=== PATIENT | female | born 1935 | race Caucasian/White ===

== ENCOUNTER 2017-03-13 10:21 | Observation (INO) ==
[2017-03-13] MEDS ORDERED: 0.9 % SODIUM CHLORIDE 1,000 ML IV ONE (10:38)
--- NOTE | 2017-03-13 10:40 | Emergency Department Note ---
Abdominal Pain HPI - General Chief Complaint: Abdominal Pain Stated Complaint: Abdominal Pain Time Seen by Provider: 03/13/17 10:36 Source: patient Mode of arrival: ambulatory Limitations: no limitations - History of Present Illness HPI Narrative: This patient developed sudden onset of right lower quadrant pain this morning. No nausea or vomiting. She does still have ovaries and appendix. MD Complaint: abdominal pain Onset (ago): hour(s) Consistency: constant Location: RLQ Severity: moderate Quality: stabbing Radiation: none Migration to: no migration Improves with: nothing Worsens with: nothing - Related Data Previous Rx's Medication Instructions Recorded alprazolam 0.5 mg tablet 0.25 mg PO PRN #30 tab 01/01/17 Allergies Allergy/AdvReac Type Severity Reaction Status Date / Time Beer AdvReac Unknown Sneezing, Uncoded 01/01/17 09:37 cough Cats AdvReac Unknown Eye Uncoded 01/01/17 09:37 problems Dust AdvReac Unknown Hard to Uncoded 01/01/17 09:37 breathe Perfume AdvReac Unknown Sneeze, Uncoded 01/01/17 09:37 cough Review of Systems All systems ED: reviewed and negative except as stated. Abdominal Pain PMH - Past Medical History PMF Narrative: Medical History Encounter for laboratory test (Acute) Abnormal mammogram (Chronic) Past Surgical History History of colonoscopy (Chronic) History of surgery (Chronic) Family History Sister Essential hypertension Mother Acute myocardial infarction Medical history: Reports: no medical history - Social History Smoking status: Never smoker Physical Exam - General Limitations: no limitations General appearance: alert - Head Head exam: atraumatic, normocephalic - Eye Eye exam: Present: normal appearance - ENT ENT exam: normal exam, mucous membranes moist - Neck Neck exam: Present: normal inspection - Chest Chest inspection: Present: normal inspection - Respiratory Respiratory exam: Present: normal lung sounds bilaterally - Cardiovascular Cardiovascular exam: Present: regular rate, normal rhythm, normal heart sounds - Abdominal Exam Abdominal exam: Present: soft, tenderness, normal bowel sounds, mass (Mass felt in the right lower quadrant). Absent: distention, guarding, rebound, rigidity Abdominal tenderness: Present: RLQ, moderate - Neurological Exam Neurological exam: Present: alert - Psychiatric Psychiatric exam: Present: normal affect, normal mood - Skin Skin exam: Present: warm, dry, intact Course Vital Signs Temperature 97.7 F 03/13/17 10:22 Pulse Rate 70 03/13/17 10:22 Respiratory Rate 20 03/13/17 10:22 Blood Pressure 176/87 03/13/17 10:22 Pulse Oximetry (%) 97 03/13/17 10:22 Temperature 97.7 F 03/13/17 10:22 Pulse Rate 61 03/13/17 11:28 Respiratory Rate 20 03/13/17 10:22 Blood Pressure 146/64 03/13/17 11:16 Pulse Oximetry (%) 98 03/13/17 11:28 Abdominal Pain - MDM Narrative Medical decision making narrative: 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 Discussed case with Dr. Bell and the patient will be admitted to the hospital. We will give Zosyn and the IV here in the ER. - Lab Data Lab results reviewed: Yes I reviewed the patient's lab results. Result diagrams: 03/13/17 10:45 03/13/17 10:45 Lab Results 03/13/17 03/13/17 03/13/17 Range/Units 10:45 10:45 11:28 WBC 6.0 (4.5-11.0) K/mcL RBC 4.44 (4.00-5.20) M/mcL Hgb 13.9 (12.0-15.0) g/dL Hct 40.5 (36.0-48.0) % POC Hct 37.0 (36.0-48.0) % MCV 91.3 (80.0-100.0) fL MCH 31.3 (26.0-34.0) pg MCHC 34.3 (31.0-36.0) g/dL RDW 14.3 (11.5-14.5) % Plt Count 189 (140-440) K/mcL MPV 8.6 (7.4-10.4) fL Gran % 43.6 (38.0-78.0) % Lymph % (Auto) 42.7 (15.5-49.0) % [place] % (Auto) 11.4 (1.0-12.0) % Eos % (Auto) 1.8 (0.0-7.0) % Baso % (Auto) 0.5 (0.0-2.0) % Gran # 2.6 (1.8-8.0) K/mcL Lymph # (Auto) 2.6 (1.5-4.8) K/mcL [place] # (Auto) 0.7 (0.1-0.9) K/mcL Eos # (Auto) 0.1 (0.0-0.7) K/mcL Baso # (Auto) 0 (0.0-0.3) K/mcL POC Sodium 142 (133-145) mmol/L Sodium 143 (133-145) mmol/L POC Potassium 3.4 (3.3-5.1) mmol/L Potassium 3.7 (3.3-5.1) mmol/L POC Chloride 104 (96-108) mmol/L Chloride 102 (96-108) mmol/L Carbon Dioxide 28 (22-30) mmol/L POC Total CO2 29 (22-30) mmol/L Anion Gap 13.0 (8-16) POC BUN 15 (8-23) mg/dl BUN 16 (8-23) mg/dl Creatinine 0.8 (0.6-1.1) mg/dl POC Creatinine 0.8 (0.6-1.1) mg/dl GFR Calculation 70 Glucose 106 H (70-105) mg/dL POC Glucose 95 (70-105) mg/dL Calcium 9.2 (8.6-10.4) mg/dl POC WB Ioniz Calcium 1.13 L (1.16-1.32) mmol/L Total Bilirubin 0.3 (0.0-1.0) mg/dL AST 20 (0-37) U/l ALT 13 (0-40) U/l Alkaline Phosphatase 44 (39-117) U/L Total Protein 7.0 (5.9-8.4) gm/dL Albumin 3.9 (3.2-5.2) gm/dL Globulin 3.1 (2.2-3.7) gm/dL Albumin/Globulin Ratio 1.3 (1.0-2.3) - Radiology Data Radiology results reviewed: Yes I reviewed the patient's radiology results. Disposition Pt seen by [facility] [employer] MANAGER/PA only: No Clinical Impression: Hernia Disposition: Xfer As Outpt/Obs ([facility]) Condition: Good Referrals: Galen Boss PA-C [Primary Care Provider] - Time of Disposition: 12:24
[2017-03-13] MEDS ORDERED: ONDANSETRON 4 MG/2 ML VIAL IV ONE ×2 (10:41→16:50)
[2017-03-13] MEDS ORDERED: HYDROmorphone 2 MG/ML SYRINGE IV PRN ×3 (10:41→18:48)
[2017-03-13 11:15] LABS: Basophils # (Auto) 0 K/mcL (0.0-0.3); Basophils % (Auto) 0.5 % (0.0-2.0); Eosinophils # (Auto) 0.1 K/mcL (0.0-0.7); Eosinophils % (Auto) 1.8 % (0.0-7.0); Granulocytes % (Auto) 43.6 % (38.0-78.0); Lymphocytes # (Auto) 2.6 K/mcL (1.5-4.8); Lymphocytes % (Auto) 42.7 % (15.5-49.0); Mean Cell Volume 91.3 fL (80.0-100.0); Mean Corpuscular HGB Conc 34.3 g/dL (31.0-36.0); Mean Corpuscular Hemoglobin 31.3 pg (26.0-34.0); Monocytes # (Auto) 0.7 K/mcL (0.1-0.9); Monocytes % (Auto) 11.4 % (1.0-12.0); Platelet Count 189 K/mcL (140-440); RBC 4.44 M/mcL (4.00-5.20); Red Cell Distribution Width 14.3 % (11.5-14.5)
[2017-03-13 11:37] LABS: ALT/SGPT 13 U/l (0-40); Albumin 3.9 gm/dL (3.2-5.2); Albumin/Globulin Ratio 1.3 (1.0-2.3); Alkaline Phosphatase 44 U/L (39-117); Blood Urea Nitrogen 16 mg/dl (8-23)
--- NOTE | 2017-03-13 12:20 | Cat Scan Report ---
CLINICAL INFORMATION: Right lower quadrant pain COMPARISON: None. TECHNIQUE: Following enteric contrast, 80 cc of Isovue-300 were injected intravenously, and 60 seconds later, 2.5 mm helical slices were obtained from the mid heart through the subtrochanteric regions. Following reconstruction, 2.5 mm sagittal, coronal and axial reformatted images were processed and reviewed at bone, lung and soft tissue windows. Five minutes later, 5 mm helical slices were obtained from the mid heart through the kidneys and viewed at soft tissue windows. FINDINGS: Lung bases show no abnormality - no effusion. The visualized heart is grossly normal. Images through the abdomen show the gallbladder and bile ducts, liver, both kidneys, adrenal glands, spleen, pancreas and aorta including aortic branches to be normal in size, configuration and attenuation without focal lesion. Images through the pelvis show urinary bladder to be normal. Anteflexed normal uterus spans 7 x 4 cm. Region of the ovaries are normal. A 7 cm Spigelian hernia in the right lower quadrant contains two separate segments of ileum. . Ileal wall appears mildly thickened and there is third spacing of fluid suggesting incarceration and possible strangulation. The hernia has resulted in a moderate grade small bowel obstruction. The small bowel, distal to the hernia, and colon are decompressed. There is no free air. Bone windows show no osseous abnormality. IMPRESSION: 7 cm Spigelian hernia through the anterior abdominal wall of the the right lower quadrant. It contains two separate adjacent segments of ileum which have resulted in moderate small bowel obstruction pattern. There is third spacing in the hernia sac suggesting the possibility of incarceration and early strangulation. No free air. Mild left hydronephrosis/hydroureter. No stone identified. The patient may have previously had a stone which is now passed Interpreted and Authenticated by: River Ordaz 03/13/17
[2017-03-13] MEDS ORDERED: PIPERACILLIN SODIUM/TAZOBACTAM 3.375 GM in DEXTROSE 5% IN WATER 50 ML IV ONE (12:22)
[2017-03-13 13:06] LABS: Appearance,Urine CLEAR; Bacteria,Urine FEW /hpf (0); Bilirubin,Urine NEG (NEG); Color,Urine COLORLESS; Glucose,Urine (UA) NEGATIVE (NEG); Leukocyte Esterase,Urine 75 /uL (NEG); Mucus,Urine FEW /hpf (0); Nitrate,Urine NEG (NEG); Protein,Urine NEG (NEG); Specific Gravity,Urine 1.009 (1.000-1.035); Urine Blood NEG mg/dL (<0.03); Urine RBC 1 /hpf (0-1); Urine Squamous Epithelial Cell 1 /hpf (0-4); Urine WBC 3 /hpf (0-4); Urobilinogen,Urine NEG (NEG)
--- NOTE | 2017-03-13 16:00 | General Surg History&Physical ---
History of Present Illness Patient information: Note initiated : 03/13/17 at 3:58 pm Service Date, if different from initiated Date: [] Patient: Radha Umaña 81 y/o F admitted on 03/13/17 for Abdominal Pain. Chief Complaint: [] HPI: Ms. Umaña is a 81 year old F with small bowel obstruction due to incarcerated spigelian hernia. The patient had acute onset of right lower quadrant pain while having breakfast this morning. She had nausea but no vomiting. The pain became worse and she was seen in the emergency room where it was noted that she had a mass in the right lower quadrant. CT of the abdomen showed a large spigelian hernia with 2 loops of small bowel tightly incarcerated with surrounding fluid. She continued to be symptomatic and is admitted for operative therapy. Review of Systems - Constitutional no headache(s), no malaise, no weakness, no weight loss - EENT Nose, mouth and throat: no abnormal hearing, no disequilibrium, no hoarseness, no vertigo - Cardiovascular no chest pain at rest, no diaphoresis, no dyspnea on exertion, no palpatations, no rapid heart rate, no syncope - Respiratory no dyspnea on exertion, no wheezing, no chest congestion - Gastrointestinal abdominal pain, bloating, nausea, no heartburn, no hematochezia - Genitourinary Genitourinary: no urinary frequency, no urinary incontinence - Musculoskeletal arthralgias, no joint swelling, no myalgias, no numbness, no stiffness - Integumentary no bleeding lesions, no changing lesions, no pruritus, no rash - Neurological no abnormal gait, no confusion, no dizziness, no numbness, no syncope, no vertigo - Psychiatric no anxiety, no depression - Endocrine no palpitations, no polydipsia, no polyphagia, no polyuria - Hematologic/Lymphatic no easy bleeding, no easy bruising, no lymphadenopathy - Allergic/Immunologic no tongue swelling, no throat swelling, no seasonal rhinorrhea, no uticaria, no wheezing, no lip swelling Past History Past medical history: No chronic medical illness Past surgical history: Treatment internal fixation left ankle in 1999 Past family history: Mother at age 65 due to myocardial infarction Father cause unknown Sister with hypertension Past social history: Never smoker Frequent alcohol user Never substance abuse Medications and Allergies Home Medications Medication Instructions Recorded Confirmed Type Multivitamin [One Daily] 1 each PO DAILY 03/13/17 03/13/17 History Allergies Allergy/AdvReac Type Severity Reaction Status Date / Time Beer AdvReac Mild Sneezing, Uncoded 03/13/17 14:30 cough Perfume AdvReac Mild Sneeze, Uncoded 03/13/17 14:30 cough Cats AdvReac Unknown Eye Uncoded 03/13/17 14:30 problems Dust AdvReac Unknown Hard to Uncoded 01/01/17 09:37 breathe Exam Temp Pulse Resp BP Pulse Ox 97.7 F 63 20 131/61 97 03/13/17 13:43 03/13/17 13:43 03/13/17 13:43 03/13/17 13:43 03/13/17 13:43 - General physical appearance well developed, well nourished, no distress - Eyes PERRL, normal ocular movement - ENT normal pinna, normal nares, normal mucosa, no hearing loss, no congestion, dentures (Full dentures) - Head Head exam IM: Present: atraumatic, normocephalic - Neck no masses, no bruits, trachea midline, no lymphadectomy, no venous distension - Cardiovascular Cardiovascular exam IM: Present: normal rate and rhythm, RRR, +S1, +S2. Absent : gallop, JVD, systolic murmur - Respiratory normal expansion, normal respiratory effort, clear to percussion, clear to auscultation - Abdomen Abdomen: Present: soft, tender, bowel sounds, masses (Tenderness with mass and fullness in right lower quadrant along the lower semilunar line), distended Hernia: Present: none - Integumentary Present: no rash, no growths, no abnormal pigmentation - Neurologic Present: normal coordination, normal sensation - Musculoskeletal Present: normal gait, normal posture - Psychiatric Present: oriented to time, oriented to person, oriented to place, speech is normal, memory intact Assessment and Plan (1) Spigelian hernia with bowel obstruction Patient counseled for exploratory laparotomy with spigelian hernia repair with mesh. Because of intestinal obstruction it will be done today. Status: Acute
--- NOTE | 2017-03-13 16:18 | XRay Report ---
CLINICAL INFORMATION: Preop COMPARISON: None. FINDINGS: The heart is mildly enlarged. Mediastinum and pulmonary vessels are normal. The lungs are clear. No effusions. IMPRESSION: Mild cardiomegaly. No acute disease Interpreted and Authenticated by: River Ordaz 03/13/17
[2017-03-13] MEDS ORDERED: MIDAZOLAM 2 MG/2 ML VIAL IV ONE (16:50)
[2017-03-13] MEDS ORDERED: KETAMINE 100 MG/ML ML IV ONE (16:50)
[2017-03-13] MEDS ORDERED: LIDOCAINE HCL/PF 100 MG/5 ML SYRINGE IV ONE (16:50)
[2017-03-13] MEDS ORDERED: DEXAMETHASONE 10 MG/ML VIAL IV ONE (16:50)
[2017-03-13] MEDS ORDERED: ROCURONIUM 10 MG/ML ML IV ONE (16:50)
[2017-03-13] MEDS ORDERED: ePHEDrine 50 MG/ML AMPUL IV ONE (16:50)
[2017-03-13] MEDS ORDERED: fentaNYL 250 MCG/5 ML VIAL IV ONE (16:50)
[2017-03-13] MEDS ORDERED: PROPOFOL 200 MG/20 ML VIAL IV ONE (16:50)
[2017-03-13] MEDS ORDERED: ONDANSETRON 4 MG/2 ML VIAL IV PRN ×2 (17:28→18:48)
[2017-03-13] MEDS ORDERED: fentaNYL 100 MCG/2 ML VIAL IV PRN (17:28)
[2017-03-13] MEDS ORDERED: diphenhydrAMINE 50 MG/ML VIAL IV PRN (17:28)
[2017-03-13] MEDS ORDERED: LACTATED RINGERS 250 ML IV PRN (17:28)
[2017-03-13] MEDS ORDERED: FLUMAZENIL 0.1 MG/ML ML IV PRN (17:28)
[2017-03-13] MEDS ORDERED: ePHEDrine 50 MG/ML AMPUL IV PRN (17:28)
[2017-03-13] MEDS ORDERED: BENZOCAINE/MENTHOL 1 LOZENGE PO PRN (17:28)
[2017-03-13] MEDS ORDERED: PROMETHAZINE 25 MG/ML VIAL IM PRN (17:28)
[2017-03-13] MEDS ORDERED: NALOXONE HCL 0.4 MG/ML VIAL IV PRN (17:28)
[2017-03-13] MEDS ORDERED: IPRATROPIUM/ALBUTEROL 3 ML AMPUL.NEB NEB PRN (17:28)
[2017-03-13] MEDS ORDERED: PROMETHAZINE 25 MG/ML VIAL IV PRN ×2 (17:28→18:48)
[2017-03-13] MEDS ORDERED: METHOCARBAMOL 1,000 MG/10 ML VIAL IV PRN (17:28)
[2017-03-13] MEDS ORDERED: MEPERIDINE 25 MG/ML SYRINGE IV PRN (17:28)
[2017-03-13] MEDS ORDERED: MEPERIDINE 50 MG/ML SYRINGE IM PRN (17:28)
[2017-03-13] MEDS ORDERED: LACTATED RINGERS 1,000 ML IV SCH (17:30)
[2017-03-13] MEDS ORDERED: BACITRACIN 50,000 UNIT VIAL IR ONE (17:37)
--- NOTE | 2017-03-13 17:53 | Brief Operative Note ---
Date of procedure: 03/13/17 Pre-op diagnosis: spigelian hernia with small bowel obstruction Post-op diagnosis: other (spigelian hernia with small bowel obstruction) Procedure: spigelian hernia repair Grafts/Implants: Yes (surgimesh) Anesthesia: GETA Findings: lower spigelian hernia with large hernia sac and 2 small bowel loops Complications: none Surgeon: Alexandre Bell Estimated blood loss (cc): 20 Specimens Removed/Pathology: none sent Condition: stable Disposition: PACU
[2017-03-13] MEDS ORDERED: HYDROcodone/APAP 5/325MG TABLET PO PRN (18:48)
[2017-03-13] MEDS ORDERED: 0.9 % SODIUM CHLORIDE 1,000 ML IV SCH (18:48)
[2017-03-13] MEDS ORDERED: ACETAMINOPHEN 1,000 MG/100 ML BOTTLE IV PRN (18:48)
[2017-03-13] MEDS ORDERED: PIPERACILLIN SODIUM/TAZOBACTAM 3.375 GM VIAL IV ONE (21:25)
[2017-03-13] MEDS: PIPERACILLIN SODIUM/TAZOBACTAM 3.375 GM in DEXTROSE 5% IN WATER 50 ML IV SCH (21:40)
[2017-03-14] MEDS ORDERED: PIPERACILLIN SODIUM/TAZOBACTAM 3.375 GM VIAL IV ONE ×2 (01:34→05:46)
[2017-03-14] MEDS: PIPERACILLIN SODIUM/TAZOBACTAM 3.375 GM in DEXTROSE 5% IN WATER 50 ML IV SCH ×3 (02:18→11:21)
[2017-03-14 05:19] LABS: Basophils # (Auto) 0 K/mcL (0.0-0.3); Basophils % (Auto) 0 % (0.0-2.0); Eosinophils # (Auto) 0 K/mcL (0.0-0.7); Eosinophils % (Auto) 0 % (0.0-7.0); Lymphocytes # (Auto) 1.1 K/mcL (1.5-4.8); Lymphocytes % (Auto) 13.3 % (15.5-49.0); Mean Cell Volume 92.3 fL (80.0-100.0); Mean Corpuscular HGB Conc 34.1 g/dL (31.0-36.0); Mean Corpuscular Hemoglobin 31.5 pg (26.0-34.0); Monocytes # (Auto) 0.1 K/mcL (0.1-0.9); Monocytes % (Auto) 1.7 % (1.0-12.0); Platelet Count 174 K/mcL (140-440); RBC 4.17 M/mcL (4.00-5.20); Red Cell Distribution Width 14.6 % (11.5-14.5)
[2017-03-14] MEDS ORDERED: PANTOPRAZOLE 40 MG PACKET PO SCH (07:30)
--- NOTE | 2017-03-14 08:39 | Operative Note ---
DATE OF OPERATION: 03/13/2017 PREOPERATIVE DIAGNOSIS: Spigelian hernia with small-bowel obstruction. POSTOPERATIVE DIAGNOSIS: Spigelian hernia with small-bowel obstruction. PROCEDURE: Spigelian hernia repair with Surgimesh. SURGEON: Alexandre Bell MD. FINDINGS: Lower spigelian hernia with large hernia sac into small bowel loops. DESCRIPTION: Under general anesthesia, the patient's abdomen was prepped and draped in the sterile field. Timeout procedure was carried out as per protocol. A curvilinear incision was made along the lower semilunar line over the protruding mass. The dissection was continued down to the aponeurosis. The aponeurosis was opened in the line of its fibers. In the space beneath the aponeurosis a large hernia sac was encountered. It was dissected circumferentially and was reduced back into the preperitoneal space effectively reducing the hernia. A 7 round, skirted Surgimesh graft was placed in the preperitoneal space. It was sutured circumferentially with multiple interrupted 0 Prolene. The muscle and fascia were closed over the mesh with interrupted 0 Prolene. Irrigation was carried out. The aponeurosis was closed with 2-0 Monocryl. Subcutaneous tissue was closed with 2-0 Monocryl. Skin was closed with aarti. The patient tolerated the procedure well. She was awakened, extubated and transferred to the postanesthetic care unit in stable satisfactory condition. LCS:margoth Job ID: [id number] Doc ID: [id number] Alexandre Bell M.D.
== END 2017-03-14 12:11 | disposition home or self-care (01) ==
LOC: ED 10:21 → MEDSUR 10:21
PROVIDERS: ADMIT Family Medicine Adult Medicine; ATTEND Family Medicine Adult Medicine